=== PATIENT | female | born 1975 | race Caucasian/White ===

== ENCOUNTER → 2021-01-12 | Outpatient (CLI) | payer BC ==
[~2021-01-12] MED LIST: BCP; LEVSOD100; PROM25 PO
== END ==
LOC: LAB 11:27 → LAB SHORT 11:27
DX: D48.5 Neoplasm of uncertain behavior of skin (principal)
CPT/HCPCS: 88305

== ENCOUNTER 2023-03-27 00:52 | Day surgery (SDC) | payer BC ==
[2023-03-27 09:50] VITALS: BP 80/45
[2023-03-27] MEDS ORDERED: VITAMIN D5000 UNIT PO (10:12)
[2023-03-27] MEDS ORDERED: VENL37.5ER PO (10:12)
[2023-03-27 11:12] VITALS: BP 120/75
== END 2023-03-27 11:15 | disposition home or self-care (01) ==
LOC: ATC 00:52
DX: M79.10 Myalgia, unspecified site (principal); I95.9 Hypotension, unspecified; D80.1 Nonfamilial hypogammaglobulinemia; M89.8X9 Other specified disorders of bone, unspecified site; F33.41 Major depressive disorder, recurrent, in partial remission; C73 Malignant neoplasm of thyroid gland
CPT/HCPCS: 80400; 82533; 96374; J0834

== ENCOUNTER 2023-06-02 15:36 | Emergency (ER) | payer BC ==
[~2023-06-02] VITALS: Ht 165.1 cm; Wt 74.8 kg
[~2023-06-02 15:36] MED LIST changes: +VENL37.5ER PO; +VITAMIN D5000 UNIT PO
[2023-06-02 16:10] LABS: BASOPHILS ABSOLUTE AUTO 0.01 K/mm3 (0.00-0.23); BASOPHILS PERCENT AUTO 0 % (0-2); EOSINOPHILS ABSOLUTE AUTO 0.04 K/mm3 (0.00-0.68); EOSINOPHILS PERCENT AUTO 1 % (0-6); Hematocrit 40.7 % (33.0-51.0); Hemoglobin 13.8 g/dL (11.5-16.0); IMMATURE GRAN ABSOLUTE AUTO 0.03 K/mm3 (0.00-0.10); IMMATURE GRAN PERCENT AUTO 1 % (0-1); LYMPHOCYTES ABSOLUTE AUTO 1.64 K/mm3 (0.84-5.20); LYMPHOCYTES PERCENT AUTO 26 % (21-46); MONOCYTES ABSOLUTE AUTO 0.52 K/mm3 (0.16-1.47); MONOCYTES PERCENT AUTO 8 % (4-13); Mean Corpuscular HGB 31.7 pg (26.0-34.0); Mean Corpuscular HGB Conc 33.9 g/dL (31.5-36.5); Mean Corpuscular Volume 93 fL (80-100); Mean Platelet Volume 9.8 fL (9.1-12.4); NEUTROPHILS ABSOLUTE AUTO 4.19 K/mm3 (1.96-9.15); NEUTROPHILS PERCENT AUTO 65 % (41-73); Platelet Count 195 K/mm3 (150-400); RDW Coefficient Variation 12.4 % (11.7-14.2); Red Blood Cell Count 4.36 M/mm3 (3.80-5.20); White Blood Cell Count 6.43 K/mm3 (4.00-11.30)
[2023-06-02 16:37] LABS: Albumin, Blood 3.6 g/dL (3.4-5.0); Albumin/Globulin Ratio 1.1 (0.8-1.8); Bilirubin, Total 0.2 mg/dL (0.1-1.0); Calcium, Blood 8.3 mg/dL (8.5-10.1); Creatinine, Blood 0.71 mg/dL (0.40-1.00); Globulin, Blood 3.3 g/dL (2.2-4.0); Potassium, Blood 3.4 mmol/L (3.5-5.5); Total Protein, Blood 6.9 g/dL (6.4-8.2)
[2023-06-02 20:31] LABS: Magnesium, Blood 1.8 mg/dL (1.6-2.4); Phosphorus, Blood 3.1 mg/dL (2.5-4.9)
[2023-06-02 20:46] LABS: Source, Urine Clean Catch
[2023-06-02 20:50] LABS: Appearance, Urine Clear (Clear); Bilirubin, Urine Neg (Neg); Blood, Urine Neg (Neg); Color, Urine Yellow (P-Yellow); Glucose Qualitative, Urine Neg (Neg); Ketones, Urine Neg (Neg); Leukocyte Esterase, Urine Neg (Neg); Nitrite, Urine Neg (Neg); Protein, Urine Neg (Neg); Urobilinogen, Urine NORM (Normal)
[2023-06-02 21:30] VITALS: BP 113/84
[2023-06-02] MEDS ORDERED: K-Dur20 MEQ (22:26)
[2023-06-02] MEDS ORDERED: NEURONTIN300 MG (22:27)
[2023-06-02] MEDS ORDERED: CYMBALTA30 M2 (22:27)
== END 2023-06-02 21:58 | disposition home or self-care (01) ==
LOC: ER 15:36
PROVIDERS: Emergency Medicine; Student in an Organized Health Care Education/Training Program
DX: E86.0 Dehydration (principal); R55 Syncope and collapse; Z88.8 Allergy status to other drugs, medicaments and biological substances; Z79.899 Other long term (current) drug therapy
CPT/HCPCS: 71046; 80053; 81003; 83735; 84100; 85025; 93005; 93010; 99284-25; J7120

== ENCOUNTER → 2023-08-31 | Outpatient (CLI) | payer BC ==
[~2023-08-31] MED LIST changes: +CYMBALTA30 M2; +K-Dur20 MEQ; +NEURONTIN300 MG
[2023-09-01 11:27] LABS: G. vaginalis (DNA Probe) Negative (NEGATIVE); T. vaginalis (DNA Probe) Negative (NEGATIVE)
[2023-09-01 11:30] LABS: Candida species (DNA Probe) Negative (NEGATIVE)
== END | disposition home or self-care (01) ==
LOC: LAB SHORT 17:37 → LAB 17:37
PROVIDERS: Internal Medicine
DX: N76.0 Acute vaginitis (principal)
CPT/HCPCS: 87480; 87510; 87660

== ENCOUNTER → 2023-11-10 | Outpatient (CLI) | payer BC ==
[2023-11-10 13:46] LABS: Free Thyroxine 1.52 ng/dL (0.70-1.60); LDL/HDL RATIO 1.4; Thyroid Stimulating Hormone 0.011 uIU/mL (0.360-4.800); Triiodothyronine, Free 2.75 pg/mL (2.18-3.98)
[2023-11-10 13:47] LABS: CHOL/HDL RATIO 2.6; Cholesterol 135 mg/dL (50-200); HDL Cholesterol 52 mg/dL (>39); Low Density Lipoprotein Chol 70 mg/dL (0-110); Triglycerides 63 mg/dL (30-160); Very Low Density Lipoprot Chol 12 mg/dL (6-32)
[2023-11-10 16:19] LABS: Bacterial Vaginosis PCR Negative (NEGATIVE); Candida Group, PCR NOT DETECTED (NOT DETECT); Candida glabrata-krusei, PCR NOT DETECTED (NOT DETECT)
== END | disposition home or self-care (01) ==
LOC: LAB 09:20 → LAB SHORT 09:20
PROVIDERS: Internal Medicine
DX: Z13.220 Encounter for screening for lipoid disorders (principal); C73 Malignant neoplasm of thyroid gland; E03.9 Hypothyroidism, unspecified; N76.0 Acute vaginitis
CPT/HCPCS: 80061; 84439; 84443; 84481; 87481; 87661; 87801

== ENCOUNTER → 2025-02-08 | Outpatient (CLI) | payer OTHER | LOC: LAB 15:42 → LAB SHORT 15:42 | PROVIDERS: Internal Medicine | DX: Z12.4 Encounter for screening for malignant neoplasm of cervix (principal) | CPT/HCPCS: 87624; G0123; G0145 ==